=== PATIENT | male | born 1955 | race Caucasian/White ===

== ENCOUNTER → 2018-12-03 | Outpatient (CLI) | payer BC ==
--- NOTE | 2018-12-03 08:30 | Diagnostic Imaging Report ---
Examination: Chest 2 view. History: Weight loss and fatigue. Findings: No comparison available. The lungs are clear. No edema. No pneumonia. No pleural effusion. No pneumothorax. Heart is normal in size. IMPRESSION: 1. Clear lungs. Dictated by: Dictated on workstation # [id number]
== END ==
LOC: RAD FS 08:11
PROVIDERS: ATTEND Nurse Practitioner Family
DX: R63.4 Abnormal weight loss (principal); R53.83 Other fatigue; Z72.0 Tobacco use
CPT/HCPCS: 71046

== ENCOUNTER → 2020-07-02 | Outpatient (CLI) | payer BC, MEDICARE | LOC: LAB FS 10:20 | PROVIDERS: ATTEND Orthopaedic Surgery Orthopaedic Surgery of the Spine | DX: Z01.812 Encounter for preprocedural laboratory examination (principal); Z20.822 Contact with and (suspected) exposure to COVID-19 | CPT/HCPCS: 87635 ==

== ENCOUNTER → 2020-07-06 | Outpatient (CLI) | payer BC, MEDICARE | LOC: LAB FS 10:30 | PROVIDERS: ATTEND Orthopaedic Surgery Orthopaedic Surgery of the Spine | DX: Z01.812 Encounter for preprocedural laboratory examination (principal); Z20.822 Contact with and (suspected) exposure to COVID-19 | CPT/HCPCS: 87635 ==

== ENCOUNTER → 2021-01-14 | Outpatient (CLI) | payer BC, MEDICARE ==
--- NOTE | 2021-01-14 09:27 | Diagnostic Imaging Report ---
CLINICAL INDICATION: Worsening weakness and numbness in legs after fusion July 2020. EXAM: Axial CT scan of the lumbar spine performed without IV contrast with sagittal and coronal reformatted images. Auto Exposure Controls were utilized during the CT exam to meet ALARA standards for radiation dose reduction. COMPARISON: None. FINDINGS: There is a roughly 30-40% compression fracture deformity involving the upper aspect of the L1 vertebra predominantly on the left side with bony bridging and sclerosis in the region. This may represent a chronic or late subacute fracture. There is no retropulsed component. There is no other lumbar spine fracture seen. There are postop changes to the lumbar spine with L2 through sacroiliac regions with posterior spinal fusion rods and pedicle screws. Interbody disk spacer at the L2-L3, L4-L5, and L5-S1 levels. Interbody fusion seen at the L3-L4 level. There is L3 laminectomy. There is right-sided L2-L5 facetectomies and left-sided L3 facetectomy. There is grade 1 anterolisthesis of L3 on L4 which is surgically fused. There is no hardware complications such as osteolysis or hardware fracture. There is some degree of bony bridging/fusion of the L2-L3, L4-L5, and L5-S1 levels. There is solid bony bridging/fusion of the L3-L4 level. Besides the postoperative changes, there is no other significant abnormality seen. There are degenerative spurs involving the lumbar spine. L1-L2: There is subtle grade 1 retrolisthesis of L1 on L2. There is mild diffuse disk bulge and moderate bilateral facet arthropathy. There is mild to moderate bilateral neural foramen narrowing. There is mild central canal narrowing and ligamentum flavum buckling. L2-L3: There is no significant bony central spinal canal or neural foramen narrowing. L3-L4: There is mild bilateral neural foramen narrowing with the right side more than the left. There is no significant central canal narrowing. L4-L5: There is at least moderate right neural foramen narrowing. There is no significant central canal or left neural foramen narrowing. L5-S1: There is no significant central canal narrowing. There is mild right neural foramen narrowing and mild to moderate left neural foramen narrowing. There is no significant central canal stenosis. IMPRESSION: 1: There is a compression fracture deformity involving the upper L1 vertebra which may be late subacute or chronic. There is no burst fracture component. 2: There are postop changes to the lumbar spine with no hardware complications. 3. There is multilevel lumbar spine degenerative disease, as described above. Dictated by: Dictated on workstation # [id number]
== END ==
LOC: RAD FS 08:35
PROVIDERS: ATTEND Physician Assistant
DX: M48.56XA Collapsed vertebra, not elsewhere classified, lumbar region, initial encounter for fracture (principal); M47.816 Spondylosis without myelopathy or radiculopathy, lumbar region; M51.26 Other intervertebral disc displacement, lumbar region; M43.16 Spondylolisthesis, lumbar region; M48.061 Spinal stenosis, lumbar region without neurogenic claudication; M48.07 Spinal stenosis, lumbosacral region; Z98.1 Arthrodesis status
CPT/HCPCS: 72131

== ENCOUNTER → 2021-10-03 | Outpatient (CLI) | payer MEDICARE ==
--- NOTE | 2021-10-03 10:44 | Diagnostic Imaging Report ---
INDICATION: Bilateral lower extremity weakness Bilateral lower extremity arterial Doppler study performed in the routine fashion with color flow Doppler and waveform analysis. Flow is triphasic throughout the lower extremities, except for biphasic in dorsalis pedis on both sides. There is no focal high velocity jet or occluded segment. IMPRESSION: No physiologic or significant arterial stenosis or occlusion. Dictated by: Dictated on workstation # [id number]
--- NOTE | 2021-10-03 13:00 | Diagnostic Imaging Report ---
PROCEDURE: CT lumbar spine without contrast. TECHNIQUE: Multiple contiguous axial images were obtained through the lumbar spine without the use of intravenous contrast. Sagittal and coronal reformations were then performed. Auto Exposure Controls were utilized during the CT exam to meet ALARA standards for radiation dose reduction. INDICATION: This patient has chronic back pain with worsening symptoms, radicular down both legs. COMPARED with CT lumbar performed 01/14/2021. FINDINGS: There is mild sclerotic wedging anteriorly of the L1 superior endplate, unchanged from prior and chronic. Remaining lumbar statures stable and normal. The alignment is unremarkable. There are multilevel interbody fusions which appeared solid and incorporated at the L2-L3, L3-L4, L4-L5 and L5-S1. Posterior fusion with vertical rods and bipedicular screws extend L2-S2, unchanged in their appearance with the left-sided S2 screw showing stable very slight jerrica-screw lucency. No evidence for hardware migration. No findings to suggest pseudoarthrosis. No appreciable acute bony or hardware fracture. There are laminectomies at L2 and on the left at L3 as well as at L5. No paravertebral mass, hemorrhage or fluid collection. The atherosclerotic aorta nonaneurysmal where visualized. The partially visualized kidneys unobstructed, nonfocal and nonacute. T12-L1: Osteophyte disc material anteriorly is present, unchanged. No canal foraminal or recess stenosis. L1-L2: This level is unremarkable with no stenosis. L2-L3: Well incorporated interbody cage is present. There is L2 decompression. The spinal canal is patent and there is no appreciable recess impingement and no significant foraminal narrowing. L3-L4: Canal decompressed by a laminectomy. Postero-left laterally there is likely some stable soft tissue like density material which may be some scarring but this did not appreciably impinge upon the caliber of the thecal sac itself and did not extend into the lateral recess anteriorly. This appears stable. There is mild right bony foraminal stenosis, unchanged. The left foramen is perhaps mildly stenosed, also stable. L4-L5: Left-sided laminotomies are present with some unchanged soft tissue like density material postero-left laterally which may reflect some stable scarring. This however did not distort the contour of the decompressed thecal sac. There is moderate left and [id number] right foraminal stenosis. No substantial impingement upon the lateral recesses. L5-S1: There is moderate right and at least moderate severity of left-sided foraminal stenoses with unchanged soft tissue-like density material postero-left laterally within the laminectomy bed. This does not substantially impinge upon the thecal sac but likely attenuates the decompression of laminectomy with mild canal stenosis. There is likely at least moderate left lateral recess impingement with the anterior extension of the tissue like density material into the recess. IMPRESSION: Very similar to the prior, unchanged postoperative findings without evidence for hardware failure. Stable alignment. Stable chronic old L1 single column superior endplate compression. No fluid collection or acute bony pathology. Multilevel mild to moderate stenoses involve the central canal, the lateral recesses and the neural foramina, detailed level by level above. Dictated by: Dictated on workstation # [id number]
== END ==
LOC: RAD FS 07:32
PROVIDERS: ATTEND Orthopaedic Surgery Orthopaedic Surgery of the Spine
DX: M48.56XA Collapsed vertebra, not elsewhere classified, lumbar region, initial encounter for fracture (principal); I70.0 Atherosclerosis of aorta; M48.061 Spinal stenosis, lumbar region without neurogenic claudication; M48.07 Spinal stenosis, lumbosacral region; Z98.1 Arthrodesis status
CPT/HCPCS: 72131; 93925

== ENCOUNTER → 2021-10-31 | Outpatient (CLI) | payer MEDICARE ==
--- NOTE | 2021-10-31 09:55 | Diagnostic Imaging Report ---
INDICATION: Increasing dyspnea PA and lateral views of the chest are obtained with comparison made study of 12/03/2018 Heart size and pulmonary vascularity are within normal limits. There may be mildly prominent interstitial markings, possibly chronic in nature. No consolidation, pneumothorax or pleural fluid is seen. IMPRESSION: Mild background interstitial markings may be chronic. Otherwise, no acute abnormality is seen. Dictated by: Dictated on workstation # [id number]
== END ==
LOC: RAD FS 08:52
PROVIDERS: ATTEND Nurse Practitioner Family
DX: R06.02 Shortness of breath (principal)
CPT/HCPCS: 71046

== ENCOUNTER → 2022-01-10 | Outpatient (CLI) | payer MEDICARE ==
--- NOTE | 2022-01-10 11:31 | Diagnostic Imaging Report ---
TIME OF EXAM: 01/10/2022 9:47 AM REASON FOR EXAM: Lung cancer screening. 46 pack year smoking history. COMPARISON: 10/31/2021. TECHNIQUE: Low Dose CT helical images obtained through the chest. Sagittal and coronal reformats were obtained and reviewed. Dose reduction techniques were utilized. CTDI vol: 2.22 mGy FINDINGS: Nodules: -- A) 4] mm, indeterminate noncalcified solid right upper lobe nodule (image 32 series 2) -- B) 4 mm, indeterminate noncalcified solid left lower lobe nodule (image 96 series 2) Lungs: Lung volumes are hyperexpanded. Centrilobular and paraseptal emphysema are seen, greatest in the lung apices. Mild subpleural reticular opacities are seen bilaterally. There is no appreciable bronchiectasis. No pulmonary mass or consolidation is present. No central endoluminal airway lesion is seen. Heart and Mediastinum: Heart size is within normal limits. Small amount of coronary calcifications are present. Aortic atherosclerosis is present without aneurysm. No pericardial effusion is present. No axillary, supraclavicular, mediastinal, internal mammary, or hilar adenopathy is present by CT size criteria. Normal size and attenuation of the visualized thyroid gland. Pleura: Normal pleural spaces. No effusion or pneumothorax. No pleural nodularity or mass. Abdomen: Included views of the upper abdomen demonstrate no acute abnormality. Bones and soft tissues: Regional skeletal and soft tissue structures are age-appropriate. IMPRESSION: 1. Nodules in the right upper lobe and left lower lobe measuring up to 4 mm. Recommend continued surveillance with low-dose chest CT in 12 months. 2. No thoracic lymphadenopathy. 3. Paraseptal and centrilobular emphysema, greatest in the lung apices. Result code: Category 2: Benign Appearance or Behavior Follow up: Continue annual screening with LDCT in 12 months Dictated by: Dictated on workstation # [id number]
== END ==
LOC: RAD 09:45
PROVIDERS: ATTEND Nurse Practitioner Family
DX: Z12.2 Encounter for screening for malignant neoplasm of respiratory organs (principal); J43.2 Centrilobular emphysema; J43.8 Other emphysema; R91.8 Other nonspecific abnormal finding of lung field; Z87.891 Personal history of nicotine dependence
CPT/HCPCS: 71271